=== PATIENT | male | born 1990 | race Caucasian/White ===

== ENCOUNTER 2022-02-09 09:23 | Emergency (ER) | payer SELFPAY ==
--- NOTE | ~2022-02-09 | XR_ITS ---
AP and lateral views of the neck CLINICAL HISTORY: Sore throat, epiglottitis FINDINGS: Osseous structures and intervertebral disc spaces and the cervical spine are grossly unrema rkable. No prevertebral soft tissue swelling. Air column unremarkable. Epiglottis does appear promine nt and thickened. No radiopaque foreign body seen. IMPRESSION: Thickened appearance of the epiglottis, raising concern for epiglottitis. Correlate clinically. Reviewed, dictated and finalized at location [] [facility] IMPRESSION: Thickened appearance of the epiglottis, raising concern for epiglottitis. Corre late clinically.
[2022-02-09 09:26] VITALS: BP 165/91; PULSE 72; RESP 16; TEMP 36.6; O2SAT 99
--- NOTE | 2022-02-09 10:27 | ED.GENADULT ---
HPI - General Adult General Chief complaint: Unspecified Stated complaint: swollen throat, vomiting Time Seen by Provider: 02/09/22 10:22 History of Present Illness HPI narrative: Patient is a 31-year-old male here for evaluation of sore throat over the past 12 hours. Patient states that he woke up in the middle of the evening with a sore throat. Notes gagging and nausea but no vomiting. He is tolerating his secretions and denies trismus, fevers, neck swelling, fevers, chills. Positive sick contacts, patient's son has croup. Patient was adopted and is unsure if he received his childhood vaccinations but he does not remember his adopted mom refusing these. Related Data Allergies Allergy/AdvReac Type Severity Reaction Status Date / Time codeine Allergy Swelling Verified 02/09/22 10:40 of Lip/Tongue/Throat Penicillins Allergy Rash Verified 02/09/22 10:41 Review of Systems Review of Systems: Gen.: Denies fevers or chills Eyes: Denies eye pain or visual change ENT: Denies congestion Respiratory: Denies shortness of breath or cough CV: Denies chest pain or palpitations GI: Denies abdominal pain nausea, emesis or diarrhea denies burning, urgency, frequency or hematuria Musculoskeletal: Denies back pain or muscle pain Neuro: Denies numbness, tingling, weakness or focal weakness Skin: Denies rash Except as documented, all other systems reviewed and negative Course Vital Signs Vital signs: Vital Signs Temperature 97.9 F 02/09/22 09:26 Pulse Rate 72 02/09/22 09:26 Respiratory Rate 16 02/09/22 09:26 Blood Pressure 165/91 H 02/09/22 09:26 Pulse Oximetry 99 02/09/22 09:26 Oxygen Delivery Room Air 02/09/22 09:26 Temperature 97.9 F 02/09/22 09:26 Pulse Rate 72 02/09/22 09:26 Respiratory Rate 16 02/09/22 09:26 Blood Pressure 165/91 H 02/09/22 09:26 Pulse Oximetry 99 02/09/22 09:26 Oxygen Delivery Room Air 02/09/22 09:26 Medical Decision Making [facility] Narrative Medical decision making narrative: 31-year-old male here for evaluation of sore throat and gagging the past several hours. On exam his uvula is markedly swollen which likely explains his symptoms. He is tolerating his secretions and has normal vital signs. Soft tissue neck x-ray shows a swollen epiglottis. Basic labs unremarkable. Strep and mono negative. He was given steroids and antibiotics with improvement of his symptoms. Did discuss case with Dr. Méndez, ENT, who recommended scope in the ED, but patient left AGAINST MEDICAL ADVICE before ENT was able to see. Patient is of sound mind and understands the risks of leaving without full medical work-up. He understands he may return to the ED at any time if he would like to be evaluated. He was left before prescriptions were able to be sent to the pharmacy and patient does not have a pharmacy listed in the system. Paper prescriptions for antibiotics and steroids were printed and patient was contacted on the phone but he did not return the call or answer. Vital Signs Vital Signs: Vital Signs Temperature 97.9 F 02/09/22 09:26 Pulse Rate 72 02/09/22 09:26 Respiratory Rate 16 02/09/22 09:26 Blood Pressure 165/91 H 02/09/22 09:26 Pulse Oximetry 99 02/09/22 09:26 Oxygen Delivery Room Air 02/09/22 09:26 Temperature 97.9 F 02/09/22 09:26 Pulse Rate 72 02/09/22 09:26 Respiratory Rate 16 02/09/22 09:26 Blood Pressure 165/91 H 02/09/22 09:26 Pulse Oximetry 99 02/09/22 09:26 Oxygen Delivery Room Air 02/09/22 09:26 Lab Data 02/09/22 11:18 02/09/22 11:18 Labs: Lab Results 02/09/22 02/09/22 02/09/22 Range/Units 10:41 11:18 11:18 WBC 7.8 (4.5-10.0) K/mm3 RBC 4.51 L (4.6-6.20) M/mm3 Hgb 13.7 L (14.0-18.0) g/dL Hct 41.7 L (42.0-52.0) % MCV 92.5 (80-100) fl MCH 30.4 (26-34) pg MCHC 32.9 (32-36) g/dl RDW 12.4 (11.5-14.5) % Plt Count 237 (150-375) k/mm3
[2022-02-09 11:11] LABS: Strep Group A RT-PCR NOT DETECTED (Negative)
[2022-02-09 11:26] LABS: Basophils Percent Auto 0.3 % (0.2-1.2); Eosinophils Absolute Auto 0.2 K/mm3 (0-0.3); Eosinophils Percent Auto 2.4 % (0-4.4); Hematocrit 41.7 % (42.0-52.0); Hemoglobin 13.7 g/dL (14.0-18.0); Immature Granulocyte Absolute 0.03 K/mm3 (0.00-0.031); Immature Granulocyte Percent A 0.4 % (0-0.5); Lymphocytes Absolute Auto 1.31 K/mm3 (0.9-3.2); Lymphocytes Percent Auto 16.9 % (18.3-44.2); Mean Corpuscular HGB Conc 32.9 g/dl (32-36); Mean Corpuscular Hemoglobin 30.4 pg (26-34); Mean Corpuscular Volume 92.5 fl (80-100); Mean Platelet Volume 10.1 fl (7.4-10.4); Monocytes Absolute Auto 0.8 K/mm3 (0.1-0.6); Monocytes Percent Auto 10.4 % (2.6-8.5); Neutrophils Absolute Auto 5.4 K/mm3 (1.3-6.7); Neutrophils Percent Auto 69.6 % (45.5-73.1); Platelet Count Result 237 k/mm3 (150-375); Red Blood Count 4.51 M/mm3 (4.6-6.20); Red Cell Distribution Width 12.4 % (11.5-14.5); White Blood Count 7.8 K/mm3 (4.5-10.0)
[2022-02-09 11:38] LABS: Alanine Aminotransferase 24 U/L (6-50); Albumin Level 4.1 g/dL (3.5-5.1); Alkaline Phosphatase 69 U/L (38-126); Anion Gap 4 mmol/L (8-16); Aspartate Amino Transferase 30 U/L (17-59); Bilirubin,Total 0.4 mg/dL (0.2-1.3); Blood Urea Nitrogen 8 mg/dL (9-20); Calcium 8.4 mg/dL (8.4-10.2); Carbon Dioxide 31 mmol/L (22-30); Chloride 103 mmol/L (98-107); Estimated CRCL calculation 126 ml/min; Estimated Glomerular Filt Rate > 60; Glucose 100 mg/dL (65-110); Potassium 4.6 mmol/L (3.4-5.0); Sodium 138 mmol/L (137-145)
[2022-02-09 11:51] LABS: Monoscreen Negative (Negative); Negative Monotest Control Negative (Negative); Positive Monotest Control Positive (Positive)
[2022-02-09] MEDS: CLINDAMYCIN HCL 150 MG CAP 600 MG PO (11:55)
== END 2022-02-09 14:03 | disposition left against medical advice (07) ==
PROVIDERS: Emergency Provider Physician Assistant
DX: K12.2 Cellulitis and abscess of mouth (principal)
CPT/HCPCS: 36415; 70360; 80053; 85025; 86308; 87651; 96372; 99283; A9270; J1100

== ENCOUNTER 2022-05-05 18:02 | Emergency (ER) | payer SELFPAY ==
[2022-05-05 18:05] VITALS: BP 111/68; PULSE 87; RESP 18; TEMP 36.6; O2SAT 98
--- NOTE | 2022-05-05 18:32 | ED.GENADULT ---
HPI - General Adult General Chief complaint: Unspecified Stated complaint: N/V X YEARS NEEDS A WORK NOTE Time Seen by Provider: 05/05/22 18:08 History of Present Illness HPI narrative: 31-year-old male presented the emergency department for evaluation of persistent nausea and vomiting. Patient states that he does use THC daily and does have daily nausea and vomiting. Patient was at work when he had nausea and vomiting at the worksite. Work became concerned and had him present for evaluation. Patient states that he also has persistent diarrhea. Patient had previously been scheduled to follow-up with a GI physician but due to incarceration he was unable to have this follow-up appointment. Today patient has declined any labs but is requesting follow-up with her primary care physician and follow-up with GI. Patient reports he does have a family history of Crohn's disease but denies ever being diagnosed with Crohn's himself. Patient has a biological brother that is negative for Crohn's. Related Data Allergies Allergy/AdvReac Type Severity Reaction Status Date / Time codeine Allergy Swelling Verified 02/09/22 10:40 of Lip/Tongue/Throat Penicillins Allergy Rash Verified 02/09/22 10:41 Review of Systems Review of Systems: All systems reviewed & are unremarkable except as noted in HPI and below Exam Narrative: APPEARANCE: Well appearing, no pain, no distress, well-nourished. HEAD: normocephalic, atraumatic. EYES: PERRLA/EOMI, conjunctivae clear. NOSE: Normal no drainage EARS:TMS clear with good light reflex. THROAT: Pharynx clear, no exudate. NECK: Supple. No adenopathy, no masses. RESPIRATORY: Airway patent, respirations nonlabored. Clear to auscultation bilaterally, no rales, rhonchi, wheezing. CARDIOVASCULAR: Regular rate and rhythm without murmurs rubs or gallops. ABDOMINAL: Soft, nontender, nondistended, normal bowel sounds. Reproducible umbilical hernia MUSCULOSKELETAL: Moves all extremities. Strength/ROM intact, No edema, No calf tenderness. NEURO: Alert. Cranial nerves II through XII intact. Grossly intact SKIN: Warm, dry. Normal Color Course Course Emergency Course: 31-year-old male with persistent nausea and vomiting. Patient declined labs or work-up at this time. Patient's abdominal exam was benign. patient was strongly encouraged to do THC washout in order to determine if cannabinoid hyperemesis syndrome could be a component of his nausea and vomiting. Patient was provided follow-up with a primary care physician and was also provided a number for follow-up with GI. Patient was educated on reasons to return to the emergency department. All question concerns were addressed. Patient was well-appearing at time of discharge. Vital Signs Vital signs: Vital Signs Temperature 97.9 F 05/05/22 18:05 Pulse Rate 87 05/05/22 18:05 Respiratory Rate 18 05/05/22 18:05 Blood Pressure 111/68 05/05/22 18:05 Pulse Oximetry 98 05/05/22 18:05 Temperature 97.9 F 05/05/22 18:05 Pulse Rate 87 05/05/22 18:05 Respiratory Rate 18 05/05/22 18:05 Blood Pressure 111/68 05/05/22 18:05 Pulse Oximetry 98 05/05/22 18:05 Medical Decision Making Vital Signs Vital Signs: Vital Signs Temperature 97.9 F 05/05/22 18:05 Pulse Rate 87 05/05/22 18:05 Respiratory Rate 18 05/05/22 18:05 Blood Pressure 111/68 05/05/22 18:05 Pulse Oximetry 98 05/05/22 18:05 Temperature 97.9 F 05/05/22 18:05 Pulse Rate 87 05/05/22 18:05 Respiratory Rate 18 05/05/22 18:05 Blood Pressure 111/68 05/05/22 18:05 Pulse Oximetry 98 05/05/22 18:05 Discharge Plan Discharge Clinical Impression: N&V (nausea and vomiting), Diarrhea Patient Disposition: Home, Self-Care Condition: Stable Instructions: Antibiotic Form Additional Instructions: Omeprazole as directed for gastritis. Follow a bland diet. Decrease your THC consumption. Have close follow-up with a primary ca
== END 2022-05-05 18:45 | disposition home or self-care (01) ==
LOC: ANHED 18:32
PROVIDERS: Emergency Provider Emergency Medicine
DX: R11.2 Nausea with vomiting, unspecified (principal); R19.7 Diarrhea, unspecified
CPT/HCPCS: 99283

== ENCOUNTER 2022-11-22 10:03 | Emergency (ER) | payer OTHER, SELFPAY ==
--- NOTE | ~2022-11-22 | XR_ITS ---
EXAMINATION: XR chest 2V DATE: 11/22/2022 11:00 INDICATION: Chest pain, cough and wheezing TECHNIQUE: PA and lateral views of the chest were obtained. COMPARISON: None FINDINGS: The lungs are clear with no focal airspace opacities, pulmonary edema, pleural effusion or pneumothor ax. The cardiomediastinal silhouette is normal. Visualized bones and soft tissues are unremarkable. IMPRESSION: 1. Normal chest radiograph. Reviewed, dictated and finalized at location A. IMPRESSION: 1. Normal chest radiograph.
[2022-11-22 10:04] VITALS: BP 112/69; PULSE 64; RESP 16; TEMP 36.3; O2SAT 99
--- NOTE | 2022-11-22 10:23 | PC.NURSE ---
EDP at bedside to assess pt.
--- NOTE | 2022-11-22 10:33 | ED.GENADULT ---
HPI - General Adult General Chief complaint: Upper Respiratory Infection Stated complaint: UPPER RESP S/SX Time Seen by Provider: 11/22/22 10:07 History of Present Illness HPI narrative: Arturo Fernandes is a 32 y/o male who presents with reports of having nasal congestion that started about a week ago and now it has gone to a productive cough over the past 5 days. He states that he can feel rattling in his right lower chest when he coughs and it hurts to cough. Denies any fever/chills. Reports feeling worse today. Related Data Allergies Allergy/AdvReac Type Severity Reaction Status Date / Time codeine Allergy Swelling Verified 11/19/22 14:06 of Lip/Tongue/Throat Penicillins Allergy Rash Verified 11/19/22 14:06 Review of Systems Review of Systems: CONSTITUTIONAL: Denies fever, chills, or sweats. EYES: Denies visual changes, redness, or discharge. ENT: Denies rhinorrhea, congestion, sore throat, or otalgia. CARDIOVASCULAR: Denies chest pain, palpitations, or edema. RESPIRATORY: Denies dyspnea, reports having a productive cough for about 5 days GASTROINTESTINAL: Denies abdominal pain, nausea, vomiting, or diarrhea. GENITOURINARY: Denies dysuria or hematuria. SKIN: Denies rash or itching. MUSCULOSKELETAL: Denies back pain, joint pain, or myalgia. NEUROLOGIC: Denies headache, numbness, dizziness, or weakness. PSYCHIATRIC: Denies anxiety or depression. PMFSH Social History Social History Smoking status: Never smoker Exam Narrative: GENERAL: Well-appearing, well-nourished, and in no acute distress. HEAD: Normocephalic, atraumatic. EYES: PERRLA and EOMI. ENT: Nares clear, no rhinorrhea or epistaxis. Mucous membranes moist. Oropharynx without tonsillar hypertrophy exudate or other lesions. NECK: Supple. No adenopathy or masses. No carotid bruits or JVD CHEST: Clear to auscultation. No respiratory distress. No wheezes rales or rhonchi HEART: Regular rate and rhythm. No murmur heard. Normal peripheral pulses. ABDOMEN: Soft, nontender, nondistended, normal active bowel sounds. EXTREMITIES: Normal range of motion. No edema. SKIN: Warm, dry, no rash. NEURO: No focal deficits. Alert and oriented x3. PSYCH: Normal mood and affect. Course Vital Signs Vital signs: Vital Signs Temperature 36.3 C L 11/22/22 10:04 Pulse Rate 64 11/22/22 10:04 Respiratory Rate 16 11/22/22 10:04 Blood Pressure 112/69 11/22/22 10:04 Pulse Oximetry 99 11/22/22 10:04 Oxygen Delivery Room Air 11/22/22 10:04 Temperature 36.3 C L 11/22/22 10:04 Pulse Rate 58 L 11/22/22 10:38 Respiratory Rate 18 11/22/22 10:38 Blood Pressure 109/70 11/22/22 10:38 Pulse Oximetry 100 11/22/22 10:40 Oxygen Delivery Room Air 11/22/22 10:40 Medical Decision Making [facility] Narrative Medical decision making narrative: Patient reports of having URI symptoms for about a week that have become worse/ he describes nasal congestion that started about a week ago and has progressed to productive cough that feels worse today Lung sounds clear throughout Non tachycardic 99% on RA- RR even unlabored plan to check chest x ray and URI swab including Covid chest x ray is clear URI swab-negative Plan to start him on azithromycin with symptoms getting worse over a week Close follow up with PCP Differential Diagnosis Differential Diagnosis: Pneumonia/ Bronchitis/ URI/ Viral syndrome/ spontaneous pneumothorax/ muscle strain Medical Records Medical records reviewed: Yes I reviewed the external patient's medical records. Vital Signs Vital Signs: Vital Signs Temperature 36.3 C L 11/22/22 10:04 Pulse Rate 64 11/22/22 10:04 Respiratory Rate 16 11/22/22 10:04 Blood Pressure 112/69 11/22/22 10:04 Pulse Oximetry 99 11/22/22 10:04 Oxygen Delivery Room Air 11/22/22 10:04 Temperature 36.3 C L 11/22/22 10:04 Pulse Rate 58 L 09/
[2022-11-22 10:37] VITALS: O2SAT 100
[2022-11-22 10:38] VITALS: BP 109/70; PULSE 58; RESP 18; O2SAT 100
[2022-11-22 10:40] VITALS: O2SAT 100
[2022-11-22 11:20] LABS: Influenza A QL RT-PCR Negative (Negative); Influenza B QL RT-PCR Negative (Negative); RSV RNA, RT-PCR Negative (Negative); SARS-CoV-2 RNA PCR Negative (Negative)
[2022-11-22] MEDS: KETOROLAC 30 MG/ML VIAL (*BKC) IM (11:29)
[2022-11-22] MEDS: AZITHROMYCIN 250 MG TABLET 500 MG PO (11:29)
[2022-11-22 12:24] VITALS: BP 112/67; PULSE 69; RESP 17; O2SAT 100
== END 2022-11-22 12:26 | disposition home or self-care (01) ==
PROVIDERS: Emergency Provider Nurse Practitioner Family
DX: J06.9 Acute upper respiratory infection, unspecified (principal); Z20.822 Contact with and (suspected) exposure to COVID-19
CPT/HCPCS: 71046; 87637; 96372; 99283; A9270; J1885